=== PATIENT | female | born 1955 | race Caucasian/White ===

== ENCOUNTER 2016-11-11 05:57 | Day surgery (SDC) | payer BC ==
--- NOTE | ~2016-11-11 | EGD ---
EGD REPORT [facility] [address] [place] [address] NAME: ILEANA HILTON : 55 STATUS : REG [facility]#: [id number] AGE: 61 ADM/REG DATE : 11/11/16 MR#: [id number] REPORT SERV DATE: 11/11/16 DICTATED BY: PERFECTO WADDELL DATE: 11/11/16 REPORT STATUS : Draft TRANSCRIBED BY: [employer] DATE: 11/11/16 [facility] Center Patient Name: Ileana Hilton Date of : 1955 Attending MD: PERFECTO WADDELL MD Procedure Date No Time: 11/11/2016 Procedure: Colonoscopy Indications: Iron deficiency anemia Referring MD: SULEIMAN BLANTON Medicines: as per anesthesia Complications: No immediate complications. Procedure: Pre-Anesthesia Assessment: - ASA Grade Assessment: II - A patient with mild systemic disease. After I obtained informed consent, the scope was passed under direct vision. Throughout the procedure, the patient's blood pressure, pulse, and oxygen saturations were monitored continuously. The PCF [id number] was introduced through the anus and advanced to the cecum, identified by appendiceal orifice and ileocecal valve. The colonoscopy was performed without difficulty. The patient tolerated the procedure. The quality of the bowel preparation was adequate to identify polyps. Findings: The perianal and digital rectal examinations were normal. Internal hemorrhoids were found during endoscopy and were mild. Impression: - Internal hemorrhoids. Recommendation: - Repeat colonoscopy in 10 years for surveillance. Procedure Code(s): --- Professional --- 67424, Colonoscopy, flexible, proximal to splenic flexure; diagnostic, with or without collection of specimen(s) by brushing or washing, with or without colon decompression (separate procedure) Diagnosis Code(s): --- Professional --- K64.8, Other hemorrhoids D50.9, Iron deficiency anemia, unspecified CPT copyright 2013 [employer]. All rights reserved. EGD REPORT [facility] [address] [place]. [address] NAME: ILEANA HILTON : 55 STATUS : REG [facility] PAT#: [id number] AGE: 61 ADM/REG DATE : 11/11/16 MR#: [id number] REPORT SERV DATE: 11/11/16 DICTATED BY: PERFECTO WADDELL. DATE: 11/11/16 REPORT STATUS : Draft TRANSCRIBED BY: [employer] DATE: 11/11/16 The codes documented in this report are preliminary and upon greek professor review may be revised to meet current compliance requirements. PERFECTO WADDELL MD 11/11/2016 8:04 AM This report has been signed electronically. Number of Addenda: 0 Note Initiated On: 11/11/2016 7:15 AM Scope Withdrawal Time 0 hours 7 minutes 6 seconds [address] [facility] [place] [address]
[~2016-11-11 05:57] MED LIST: LEVBID PO; LEXAPRO20 PO; PREM625 PO; PRILO PO; PRIN10 PO
== END 2016-11-11 23:59 | disposition home or self-care (01) ==
LOC: DMU 05:57
PROVIDERS: Internal Medicine Gastroenterology
PROC: 0DJD8ZZ Inspection of Lower Intestinal Tract, Via Natural or Artificial Opening Endoscopic (ICD-10-PCS; principal; 2016-11-11 07:30)
DX: K64.8 Other hemorrhoids (principal); D50.9 Iron deficiency anemia, unspecified; I10 Essential (primary) hypertension; Z79.890 Hormone replacement therapy; Z79.899 Other long term (current) drug therapy
CPT/HCPCS: 94640; J2405